=== PATIENT | female | born 1995 | race Caucasian/White ===

== ENCOUNTER 2016-09-27 08:34 | Emergency (ER) | payer OTHER ==
[~2016-09-27] VITALS: Ht 167.6 cm; Wt 150.5 kg
[2016-09-27 08:48] VITALS: Ht 167.6 cm; Wt 150.5 kg
[2016-09-27] MEDS ORDERED: FAMO-18 PO (09:48)
[2016-09-27] MEDS ORDERED: CIPR7.5D4 BOTH EARS (09:48)
[2016-09-27 10:02] LABS: ADD UMIC YES; URINE BILIRUBIN (Dip) NEGATIVE (NEGATIVE); URINE BLOOD (Dip) NEGATIVE (NEGATIVE); URINE COLOR LT. YELLOW (YELLOW); URINE GLUCOSE (Dip) NEGATIVE (NEGATIVE); URINE KETONES (Dip) NEGATIVE (NEGATIVE); URINE LEUKOCYTE ESTERASE (Dip) TRACE (NEGATIVE); URINE NITRITE (Dip) NEGATIVE (NEGATIVE); URINE TOTAL PROTEIN (Dip) NEGATIVE (NEGATIVE); URINE UROBILINOGEN (Dip) 0.2 E.U./dL (0.1-1.0)
[2016-09-27 10:12] LABS: BACTERIA,URINE MANY; URINE RBCS 0-2 /HPF (0)
[2016-09-27] MEDS ORDERED: CIPR500T4 PO (10:15)
--- NOTE | 2016-09-27 12:19 | ERD ---
ER Documentation Chief Complaint Date/Time DATE: 09/27/16 TIME: 12:12 Chief Complaint HAS NAUSEA/VOMITING BILAT EAR PAIN HPI This is a 20-year-old female presenting to emergency department for vomiting and bilateral earache 1 week. Patient states for the past week every morning she has had ascitic emesis soon after waking up. Patient states she has some nausea with this. No abdominal pain. No fevers or chills. Patient also has bilateral earache. No otorrhea, mastoid tenderness,or ear canal pruritus. Patient was seen by her primary care provider who told her she does not have an infection. Patient states her last menstrual period was last week. Patient unsure if she is . ROS All systems reviewed and are negative except as per history of present illness. Medications Home Meds Active Scripts Ciprofloxacin Hcl* (Ciprofloxacin Hcl*) 500 Mg Tablet, 500 MG PO BID for 3 Days , TAB Prov:CLAUDIA MARQUEZ NP 09/27/16 Ciprofloxacin Hcl/Dexameth (Ciprodex Otic Suspension) 7.5 Ml Drops.susp, 4 DROP BOTH EARS BID, #1 BOTTLE Prov:CLAUDIA MARQUEZ NP 09/27/16 Famotidine* (Pepcid*) 20 Mg Tablet, 20 MG PO BID for 5 Days, TAB Prov:CLAUDIA MARQUEZ NP 09/27/16 Allergies Allergies: Coded Allergies: No Known Allergy (Unverified , 09/27/16) PMhx/Soc Medical and Surgical Hx: pt denies Medical Hx, pt denies Surgical Hx Hx Alcohol Use: No Hx Substance Use: No Hx Tobacco Use: No Smoking Status: Never smoker Physical Exam Vitals Vital Signs Date Time Temp Pulse Resp B/P Pulse Ox O2 Delivery O2 Flow Rate FiO2 09/27/16 08:48 99.0 84 18 126/64 98 Physical Exam Const: Alert, no acute distress Head: Atraumatic Eyes: Normal Conjunctiva ENT: Normal External Ears, Nose and Mouth. TMs normal bilaterally. No otorrhea. No mastoid tenderness. Neck: Full range of motion..~ No meningismus. No lymphadenopathy. Resp: Clear to auscultation bilaterally. No wheezing, rhonchi or crackles. Cardio: Regular rate and rhythm, no murmurs Abd: Soft, non tender, non distended. Normal bowel sounds Skin: No petechiae or rashes Back: No midline or flank tenderness Ext: No cyanosis, or edema Neur: Awake and alert Psych: Normal Mood and Affect Results 24 hrs Laboratory Tests Test 09/27/16 09:45 Urine Color LT. YELLOW Urine Clarity CLEAR Urine pH 6.0 Urine Specific [place] 1.020 Urine Ketones NEGATIVE Urine Nitrite NEGATIVE Urine Bilirubin NEGATIVE Urine Urobilinogen 0.2 E.U./dL Urine Leukocyte Esterase TRACE Urine Microscopic RBC 0-2/HPF Urine Microscopic WBC 5-10/HPF Urine Epithelial Cells MANY Urine Bacteria MANY Urine Hemoglobin NEGATIVE Urine Glucose NEGATIVE% Urine Total Protein NEGATIVE Procedures/MDM MDM: 20-year-old female presents emergency department for nausea and vomiting with bilateral earache 1 week. Physical exam is overall unremarkable. Patient states she has acidic emesis once every morning. Patient states she has burning sensation in throat. No fevers or chills. Vital signs are stable. No shortness of breath or difficulty breathing. No chest pain. Patient also has bilateral earache 1 week. No signs or symptoms of acute otitis media. Patient c/o severe pain to bilateral ears. This may be otitis externa vs. allergic rhinitis. Urine dip shows trace leukocytes with many bacteria. Urine is negative. Differential diagnosis includes but not limited to acute FL, pancreatitis, peptic ulcer disease, GERD, gastritis, gastroparesis, functional dyspepsia, UTI , otitis externa and allergic rhinitis. I doubt acute FL due to patient's normal vital signs, patient denies chest pain , shortness of breath, difficulty breathing or heart palpitations. I doubt pancreatitis due to patient's normal lab results. Patient is appropriate for outpatient management and will be given prescription for Cipro, Ciprodex and Pepcid. Instructed to follow-up with primary care provider in the next 2-3 days for reassessment. Return to ED for any high fever , chest pain, difficulty breathing, shortness breath, wheezing, vomiting, diarrhea, abdominal pain or any new or worsening symptoms. Patient verbalizes understanding. All questions answered at discharge. Departure Diagnosis: Primary Impression: GERD (gastroesophageal reflux disease) Esophagitis presence: esophagitis presence not specified Qualified Code: K21.9 - Gastroesophageal reflux disease, esophagitis presence not specified Additional Impression: Earache symptoms in both ears Condition: Stable Patient Instructions: Earache W/O Infection (Adult), Gerd (Adult) Referrals: COMM[facility]ITY CLIN[facility] YOU HAVE RECEIVED A MEDICAL SCREENING EXAM AND THE RESULTS INDICATE THAT YOU DO NOT HAVE A CONDITION THAT REQUIRES URGENT TREATMENT IN THE EMERGENCY DEPARTMENT. FURTHER EVALUATION AND TREATMENT OF YOUR CONDITION CAN WAIT UNTIL YOU ARE SEEN IN YOUR DOCTORS OFFICE WITHIN THE NEXT 1-2 DAYS. IT IS YOUR RESPONSIBILITY TO MAKE AN APPOINTMENT FOR FOLOW-UP CARE. IF YOU HAVE A PRIMARY DOCTOR --you should call your primary doctor and schedule an appointment IF YOU DO NOT HAVE A PRIMARY DOCTOR YOU CAN CALL OUR PHYSICIAN REFERRAL HOTLINE AT IF YOU CAN NOT AFFORD TO SEE A PHYSICIAN YOU CAN CHOSE FROM THE FOLLOWING [facility] [address] [facility] [address] [facility] [facility] [address] [facility] [address] [facility] [facility] [address] [facility] [address] [facility]. [facility] YOU HAVE RECEIVED A MEDICAL SCREENING EXAM AND THE RESULTS INDICATE THAT YOU DO NOT HAVE A CONDITION THAT REQUIRES URGENT TREATMENT IN THE EMERGENCY DEPARTMENT. FURTHER EVALUATION AND TREATMENT OF YOUR CONDITION CAN WAIT UNTIL YOU ARE SEEN IN YOUR DOCTORS OFFICE WITHIN THE NEXT 1-2 DAYS. IT IS YOUR RESPONSIBILITY TO MAKE AN APPOINTMENT FOR FOLOW-UP CARE. IF YOU HAVE A PRIMARY DOCTOR --you should call your primary doctor and schedule and appointment IF YOU DO NOT HAVE A PRIMARY DOCTOR YOU CAN CALL OUR PHYSICIAN REFERRAL HOTLINE AT . IF YOU CAN NOT AFFORD TO SEE A PHYSICIAN YOU CAN CHOSE FROM THE FOLLOWING [facility] INSTITUTIONS: [facility] [address] [place] [address] [facility] [address] [place] [address] [facility] + [facility] [address] [place] [address] Additional Instructions: Call your primary care doctor TOMORROW for an appointment during the next 2-3 days.See the doctor sooner or return here if your condition worsens before your appointment time. Return to ED for any high fever, chest pain, difficulty breathing, shortness breath, wheezing, vomiting, diarrhea, abdominal pain or any new or worsening symptoms. CLAUDIA MARQUEZ NP Sep 27, 2016 12:19
== END 2016-09-27 10:22 | disposition home or self-care (01) ==
LOC: FTE 08:34
DX: K21.9 Gastro-esophageal reflux disease without esophagitis (principal); H92.03 Otalgia, bilateral
CPT/HCPCS: 81001; 99283

== ENCOUNTER 2017-04-23 01:11 | Emergency (ER) | payer SELFPAY ==
[~2017-04-23 01:11] MED LIST: CIPR500T4 PO; CIPR7.5D4 BOTH EARS; FAMO-96 PO
== END 2017-04-23 01:25 | disposition left against medical advice (07) ==
LOC: E/R 01:11
DX: Z53.21 Procedure and treatment not carried out due to patient leaving prior to being seen by health care provider (principal)